=== PATIENT | female | born 1965 | race Caucasian/White ===

== ENCOUNTER → 2023-10-15 | Emergency (ER) | payer OTHER ==
[2023-10-15 11:02] LABS: Absolute Lymphocytes (CBC) 1.3 K/uL (0.7-4.9); Lymphocytes % 27.9 % (15.3-44.8); MCV 95.3 fL (80-100); MPV 8.7 fL (7.6-11.3); Platelets 137 thou/uL (152-406); RBC Red Blood Cell Count 4.82 M/uL (3.86-4.86)
[2023-10-15 11:16] LABS: Albumin 3.1 g/dL (3.4-5.0); Bilirubin Direct 0.1 mg/dL (0-0.2); Bilirubin Indirect, Calculated 0.2 mg/dL (0.2-0.8); Bilirubin Total 0.3 mg/dL (0.2-1.0); Magnesium 1.9 mg/dL (1.6-2.4); Potassium 3.2 mEq/L (3.5-5.1); Protein, Total 6.5 g/dL (6.4-8.2); Troponin High Sensitivity 4.8 pg/mL (<58.9)
--- NOTE | 2023-10-15 11:31 | RAD REPORT ---
EXAM DESCRIPTION: CT - Head C Spine Mpr Wo Con - 10/15/2023 10:57 am CLINICAL HISTORY: Head and neck injury status post fall. Head and neck pain. Syncope COMPARISON: None. TECHNIQUE: Computed axial tomography of the head and cervical spine was obtained. Sagittal and coronal reconstruction was performed. All CT scans are performed using dose optimization technique as appropriate and may include automated exposure control or mA/KV adjustment according to patient size. FINDINGS: Mild left scalp swelling An intracranial bleed is not seen. The ventricles are normal in caliber. No significant hypodensity within the brain. An extra-axial fluid collection is not noted. Fluid within the visualized sinuses and mastoids is not seen A cervical fracture is not visualized. No dislocation is noted. Slight posterior subluxation C4 on C5 presumably chronic. Sclerosis C4 and C5 vertebral endplates wit h osteophytes likely degenerative in nature. Mild central spinal stenosis. IMPRESSION: No acute intracranial abnormality is seen. A cervical fracture is not visualized. If the patient continues to have symptoms to suggest intracranial /spinal cord pathology then MRI wou ld be recommended
--- NOTE | 2023-10-15 12:20 | RAD REPORT ---
EXAM DESCRIPTION: Matt Single View10/15/2023 10:59 am CLINICAL HISTORY: Chest pain COMPARISON: none FINDINGS: A 4.2 centimeter opacity overlies the left infra hilum Small bilateral calcified lung granulomas. Nodular opacity overlying the lateral mid to lower right lung probably a nipple shadow. Heart is normal size IMPRESSION: A 4.2 centimeter opacity overlying the left infra hilum may represent a lung mass. CT re commended
--- NOTE | 2023-10-15 13:36 | RAD REPORT ---
EXAM DESCRIPTION: CT - Chest For Pe Angio - 10/15/2023 12:48 pm CLINICAL HISTORY: lung mass, syncope COMPARISON: Chest Single View dated 10/15/2023 TECHNIQUE: Thin axial CT images of the chest were obtained following administration of 100 mL Isovue 370 IV contrast. Multiplanar reconstructions, and maximum intensity projection reconstructions were generated and reviewed. Exam utilizes a protocol for optimal evaluation of pulmonary arterial tree. All CT scans are performed using dose optimization technique as appropriate and may include automated exposure control or mA/KV adjustment according to patient size. FINDINGS: Pulmonary arteries are normal. No emboli or other suspicious finding. No acute or signific ant aorta findings. Exclusion of the right posterior costophrenic angle somewhat limits evaluation. Solid lobulated centr ally situated left upper lobe mass measuring 3.8 x 3.7 cm in greatest axial dimensions, the demonstra charlee some endobronchial growth along the distal aspect of the left main bronchus, moderately attenuati ng its lumen, see sagittal image 67. Endobronchial also extends along the bronchial branches of the l eft upper lobe towards the apex, resulting in complete opacification of these branches. Few peribronc hial nodules are present peripherally in the left upper lobe, the largest measuring 7 mm on axial jesse ge 81. No consolidative infiltrate in the lung parenchyma. No pleural thickening or pleural effusion. No pneumothorax. Superior mediastinal ovoid 9 mm node just anterior to the proximal left common carotid artery. No abnormal hilar masses or lymphadenopathy seen. Nonspecific mildly prominent lymph nodes in both ax illae. No chest wall mass. IMPRESSION: No evidence of acute central pulmonary emboli. Left central upper lobe 3.8 cm mass with endobronchial growth as detailed above, with few more distal peribronchial nodules, concerning for a primary lung malignancy. Superior mediastinal 9 mm lymph node, may be of metastatic nature. Nonspecific bilateral axillary lym ph nodes are nonspecific but favored to be reactive or inflammatory.
--- NOTE | 2023-10-15 13:56 | ER ---
Nurse's Notes [facility] Name: Fabienne Mei Age: 57 yrs Sex: Female : 1965 Arrival Date: 10/15/2023 Time: 10:24 Bed 2 Private MD: Diagnosis: Lung mass;Syncope Presentation: 10/15 10:27 Chief complaint: Patient states: Syncopal episode at work, was standing at ph counter,stated that she felt dizzy then passed out, falling straight backwards, Pt denies recent illness, no significant medical hx, VSS, BGL 88. Coronavirus screen: Vaccine status: Patient reports receiving the 2nd dose of the covid vaccine. Ebola Screen: No symptoms or risks identified at this time. Initial Sepsis Screen: Does the patient meet any 2 criteria? No. Patient's initial sepsis screen is negative. Does the patient have a suspected source of infection? No. Patient's initial sepsis screen is negative. Risk Assessment: Do you want to hurt yourself or someone else? Patient reports no desire to harm self or others. Onset of symptoms was October 15, 2023. 10:27 Method Of Arrival: EMS: [facility] 10:27 Acuity: RAHUL 2 ph Historical: - Allergies: 10:54 Sulfa (Sulfonamide Antibiotics); ph - PMHx: 10:54 None; ph - Immunization history:: Adult Immunizations unknown. - Social history:: Smoking status: Patient reports the use of cigarette tobacco products, smokes one-half pack cigarettes per day. - Family history:: not pertinent. Screenin:56 [facility] ED Fall Risk Assessment (Adult) History of falling in the last 3 months, ph including since admission Yes- physiologic fall (2 pts) Confusion or Disorientation No (0 pts) Intoxicated or Sedated No (0 pts) Impaired Gait No (0 pts) Mobility Assist Device Used No (0 pt) Altered Elimination No (0 pt) Score/Fall Risk Level 0 - 2 = Low Risk Oriented to surroundings, Maintained a safe environment, Provided non-skid footwear, Hourly rounding (assess needs \T\ fall precautionary measures) done. Abuse screen: Denies threats or abuse. Denies injuries from another. Nutritional screening: No deficits noted. Tuberculosis screening: No symptoms or risk factors identified. Assessment: 14:28 Reassessment: Patient appears in no apparent distress at this time. Patient and/or ph family updated on plan of care and expected duration. Pain level reassessed. Patient is alert, oriented x 3, equal unlabored respirations, skin warm/dry/pink. Patient states feeling better. Vital Signs: 10:26 BP 167 / 83; Pulse 86; Resp 18; Temp 98.3; Pulse Ox 97% ; Weight 58.97 kg; Height 5 ft. ph 9 in. ; 12:00 BP 152 / 78; Pulse 84; Resp 18; Pulse Ox 98% on R/A; ph 13:33 BP 146 / 78; Pulse 78; Resp 19; Pulse Ox 99% on R/A; ph 10:26 Body Mass Index 19.20 (58.97 kg, 175.26 cm) ph ED Course: 10:25 Patient arrived in ED. ph 10:26 Brennen Almanza MD is Attending Physician. rt 10:54 Triage completed. ph 10:56 XRAY Chest (1 view) In Process Unspecified. EDMS 10:56 Arm band placed on. ph 10:57 Patient has correct armband on for positive identification. Placed in gown. Bed in low ph position. Call light in reach. Side rails up X2. Client placed on continuous cardiac and pulse oximetry monitoring. NIBP monitoring applied. 11:01 CT Head C Spine In Process Unspecified. EDMS 11:08 Anahi Kendall, JAVED is Primary Nurse. ph 12:49 CT Chest For PE Angio In Process Unspecified. EDMS 13:55 Aki Erickson DO is Referral Physician. rt 13:55 Yannick Bacon MD is Referral Physician. rt 14:28 No provider procedures requiring assistance completed. IV discontinued, intact, ph bleeding controlled, No redness/swelling at site. Pressure dressing applied. Administered Medications: No medications were administered Medication: 10:57 VIS not applicable for this client. ph Outcome: 13:56 Discharge ordered by . rt 14:29 Discharged to home ambulatory, with significant other, ph 14:29 Condition: good 14:29 Discharge instructions given to patient, Instructed on discharge instructions, follow up and referral plans. Demonstrated understanding of instructions, follow-up care, 14:29 Patient left the ED. ph Signatures: Dispatcher [employer] EDCT Anahi Kendall RN RN ph [place], Brennen, MD MD rt
--- NOTE | 2023-10-15 13:56 | EDPHYS ---
Physician Documentation [facility] Name: Fabienne Mei Age: 57 yrs Sex: Female : 1965 Arrival Date: 10/15/2023 Time: 10:24 Bed 2 Private MD: ED Physician Brennen Almanza HPI: 10/15 11:21 This 57 yrs old Female presents to ER via EMS with complaints of Syncope. rt 11:21 Patient presents to the ED with a syncopal event at work, patient was standing at the rt checkout counter, she became acutely lightheaded, lost consciousness falling backwards hitting her head. Denies chest pain. Was only unresponsive for a brief period of time, had return to baseline mental status. Reports mild headache where she hit her head, denies neck pain, other acute complaints, symptoms are moderate severity, no other aggravating or elevating factors.. Historical: - Allergies: 10:54 Sulfa (Sulfonamide Antibiotics); ph - PMHx: 10:54 None; ph - Immunization history:: Adult Immunizations unknown. - Social history:: Smoking status: Patient reports the use of cigarette tobacco products, smokes one-half pack cigarettes per day. - Family history:: not pertinent. ROS: 11:21 Constitutional: Negative for fever, chills, and weight loss, Neck: Negative for injury, rt pain, and swelling, Cardiovascular: Negative for chest pain, palpitations, and edema, Respiratory: Negative for shortness of breath, cough, wheezing, and pleuritic chest pain, Abdomen/GI: Negative for abdominal pain, nausea, vomiting, diarrhea, and constipation, MS/Extremity: Negative for injury and deformity, Skin: Negative for injury, rash, and discoloration, Psych: Negative for depression, anxiety, suicide ideation, homicidal ideation, and hallucinations, 11:21 Neuro: Positive for headache, syncope, Exam: 11:21 Constitutional: This is a well developed, well nourished patient who is awake, alert, rt and in no acute distress. Chest/axilla: Normal chest wall appearance and motion. Nontender with no deformity. No lesions are appreciated. Cardiovascular: Regular rate and rhythm with a normal S1 and S2. No gallops, murmurs, or rubs. Normal PMI, no JVD. No pulse deficits. Respiratory: Lungs have equal breath sounds bilaterally, clear to auscultation and percussion. No rales, rhonchi or wheezes noted. No increased work of breathing, no retractions or nasal flaring. Abdomen/GI: Soft, non-tender, with normal bowel sounds. No distension or tympany. No guarding or rebound. No evidence of tenderness throughout. Skin: Warm, dry with normal turgor. Normal color with no rashes, no lesions, and no evidence of cellulitis. MS/ Extremity: Pulses equal, no cyanosis. Neurovascular intact. Full, normal range of motion. Neuro: Awake and alert, GCS 15, oriented to person, place, time, and situation. Cranial nerves II-XII grossly intact. Motor strength 5/5 in all extremities. Sensory grossly intact. Cerebellar exam normal. Normal gait. Psych: Awake, alert, with orientation to person, place and time. Behavior, mood, and affect are within normal limits. 11:21 Head/face: Contusion to the posterior scalp, no lacerations, no other external evidence of trauma. 11:21 Neck: No posterior cervical midline tenderness, 11:21 ECG was reviewed by the Attending Physician. Vital Signs: 10:26 BP 167 / 83; Pulse 86; Resp 18; Temp 98.3; Pulse Ox 97% ; Weight 58.97 kg; Height 5 ft. ph 9 in. ; 12:00 BP 152 / 78; Pulse 84; Resp 18; Pulse Ox 98% on R/A; ph 13:33 BP 146 / 78; Pulse 78; Resp 19; Pulse Ox 99% on R/A; ph 10:26 Body Mass Index 19.20 (58.97 kg, 175.26 cm) ph MDM: 10:26 Patient medically screened. rt 16:09 Differential Diagnosis: Vasovagal syncope, dysrhythmia, electrolyte disturbance, acute rt coronary syndrome. Data reviewed: vital signs, nurses notes, lab test result(s), EKG, radiologic studies. Consideration of Admission/Observation Escalation of care including admission/observation considered. Patient with negative syncope workup, does not require admission for further evaluation. Patient was informed of findings of lung mass, was given copies of the reports. Was instructed to establish care with a primary care and to follow-up with pulmonology. Patient verbalized understanding.. Independent interpretation of the following test(s) in the Emergency Department X-Ray: My interpretation is Lung mass seen on interpretation of x-ray images. Care significantly affected by the following Social Determinants of Health: Tobacco use. Counseling: I had a detailed discussion with the patient and/or guardian regarding the historical points, exam findings, and any diagnostic results supporting the discharge/admit diagnosis, lab results, radiology results, the need for outpatient follow up, to return to the emergency department if symptoms worsen or persist or if there are any questions or concerns that arise at home. 10/15 10:27 Order name: Basic Metabolic Panel; Complete Time: 11: rt 10/15 10:27 Order name: CBC with Diff; Complete Time: : rt 10/15 10:27 Order name: LFT's; Complete Time: rt 10/15 10:27 Order name: Magnesium; Complete Time: rt 10/15 10:27 Order name: Troponin HS; Complete Time: : rt 10/15 10:27 Order name: XRAY Chest (1 view); Complete Time: 12: rt 10/15 10:27 Order name: CT Head C Spine; Complete Time: 12: rt 10/15 12:34 Order name: CT Chest For PE Angio; Complete Time: 13:41 rt 10/15 10:27 Order name: EKG; Complete Time: 10: rt 10/15 10:27 Order name: Cardiac monitoring; Complete Time: :10/15 10:27 Order name: EKG - Nurse/Tech; Complete Time: 11:10/15 10:27 Order name: IV Saline Lock; Complete Time: 10/15 10:27 Order name: Labs collected and sent; Complete Time: 10/15 10:27 Order name: O2 Per Protocol; Complete Time: :10/15 10:27 Order name: O2 Sat Monitoring; Complete Time: : rt EC:21 Rate is 89 beats/min. Rhythm is regular, Normal Sinus Rhythm with No ectopy. QRS Nixon rt is Normal. IN interval is normal. QRS interval is normal. QT interval is normal. No Q waves. T waves are Normal. No ST changes noted. Interpreted by me. Administered Medications: No medications were administered Disposition Summary: 10/15/23 13:56 Discharge Ordered Notes: Location: Home rt Problem: new rt Symptoms: have improved rt Condition: Stable rt Diagnosis - Lung mass rt - Syncope rt Followup: rt - With: Aki Erickson DO - When: 2 - 3 days - Reason: Followup: rt - With: Yannick Bacon MD - When: 2 - 3 days - Reason: Discharge Instructions: - Discharge Summary Sheet rt - Syncope rt - Lung Mass rt Forms: - Medication Reconciliation Form rt - Thank You Letter rt - Antibiotic Education rt - Prescription Opioid Use rt - Patient Portal Instructions rt - Leadership Thank You Letter rt Signatures: Dispatcher [employer] Anahi Marie, JAVED RN ph Brennen Almanza MD MD rt
[2023-10-15 15:44] VITALS: BP 167/83; TEMP 98.3; O2SAT 97
== END ==
LOC: ER 10:24
DX: R55 Syncope and collapse (principal); R91.8 Other nonspecific abnormal finding of lung field; F17.210 Nicotine dependence, cigarettes, uncomplicated; Z88.2 Allergy status to sulfonamides
CPT/HCPCS: 93005; 85025; 80048; 36415; 83735; 80076; 84484; 70450; 72125; 71275; 71045; Q9967

== ENCOUNTER → 2023-10-26 | Day surgery (SDC) | payer OTHER ==
[~2023-10-26] MED LIST: LIDOCAINE 1% MPF 30 ML VIAL ONE; MIDAZOLAM HCL 2 MG/2 ML INJ ONE; propofoL 200 MG/20 ML VIAL IV ONE
[2023-10-26] MEDS: Ringers Lactate 1,000 ML IV ONE (07:00)
[2023-10-26] MEDS: GLYCOPYRROLATE 0.2 MG/ML SYR ONE (07:10)
[2023-10-26] MEDS: LIDOCAINE 4% TOP SOLUTION ONE (07:19)
[2023-10-26] MEDS: Phenylephrine HCl 10 MG/ML 1 ML VIAL ONE (07:30)
[2023-10-26] MEDS: LIDOCAINE 1% MPF 30 ML VIAL ONE (08:07)
--- NOTE | 2023-10-26 09:12 | P.OP ---
Date of Service: 10/26/23 (Bronchoscopy with left upper lobe endobronchial biopsy, BAL and wire brushings) Findings and Operative Technique Patient is 57 years of age heavy smoker admitted with hemoptysis and a left upper lobe lung mass as a reason for bronchoscopy After obtaining informed consent from the patient she was premedicated by anesth esia Findings normal vocal cords normal trachea normal mark normal right sided bronchial anatomy and did have a mass visible in the left mainstem bronchus brooding about 60% of the lumen Multiple biopsies including lavage and wire brushing was obtained from the left upper lobe lung mass she had some bleeding otherwise did not experience any hypotension or hypoxemia remained stable. Findings were communicated to the patient's . Patient to be discharged will contact patient's with the result in 4-5 business days Have advised the patient to contact me if there are any question expect some hemoptysis from the biopsy
--- NOTE | 2023-10-26 10:01 | RAD REPORT ---
EXAM DESCRIPTION: RAD - Fluoroscopy <1 Hour - 10/26/2023 9:38 am CLINICAL HISTORY: BRONCH COMPARISON: None available. FINDINGS: Eleven Images were sent to PACS, documenting fluoroscopy used during a bronchoscopy proced ure. No radiologist was available for the procedure, nor will any image interpretation he provided. P lisa refer to the procedural report for additional details. Fluoroscopy time: 187 seconds. IMPRESSION: Documentation of fluoroscopy utilization as above.
--- NOTE | 2023-10-26 10:05 | RAD REPORT ---
EXAM DESCRIPTION: RADChest Single View10/26/2023 9:36 am CLINICAL HISTORY: S/P BRONCHOSCOPY COMPARISON: Chest Single View dated 10/15/2023; Chest For Pe Angio dated 10/15/2023 TECHNIQUE: Portable AP view of the chest. FINDINGS: Stable left perihilar mass. Interstitial perihilar opacities may reflect decreased inspira tory effort, mild airway opacification, mild interstitial edematous changes. No pneumothorax or effu vinay. The cardiomediastinal contours are unremarkable. IMPRESSION: Stable left perihilar mass. Mild perihilar interstitial opacities as above.
[2023-10-26 10:23] VITALS: BP 135/66; TEMP 97.2; O2SAT 100
== END ==
LOC: OR 06:47
PROVIDERS: ATTEND Internal Medicine Sleep Medicine
PROC: 0BD88ZX Extraction of Left Upper Lobe Bronchus, Via Natural or Artificial Opening Endoscopic, Diagnostic (ICD-10-PCS; 2023-10-26)
PROC: 0B9G8ZX Drainage of Left Upper Lung Lobe, Via Natural or Artificial Opening Endoscopic, Diagnostic (ICD-10-PCS; principal; 2023-10-26 08:00)
DX: D3A.090 Benign carcinoid tumor of the bronchus and lung (principal); C34.92 Malignant neoplasm of unspecified part of left bronchus or lung; R04.2 Hemoptysis; F17.210 Nicotine dependence, cigarettes, uncomplicated
CPT/HCPCS: 31625; 31624; 88108 ×2; 88305 ×2; 71045; 76000; J2704; J2371; J2001 ×2; J2250; J7120; 88304